=== PATIENT | male | born 1960 | race Caucasian/White ===

== ENCOUNTER 2020-11-08 07:37 | Day surgery (SDC) | payer OTHER ==
[~2020-11-08 07:37] MED LIST: Lactated Ringers 1,000 ML IV SCH; Lidocaine 2% 5 ML SDV ONE; Propofol 200 MG/20 ML SDV ONE; fentaNYL 100 MCG/2 ML SDV ONE
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
[2020-11-08] MEDS ORDERED: Glycopyrrolate 0.2 MG/ML SDV ONE ×2 (09:18→09:21)
--- NOTE | 2020-11-08 09:57 | PCM.OPNOTE ---
- General Post-Op/Procedure Note Date of Surgery/Procedure: 11/08/20 Operative Procedure(s): colonoscopy and hot snarr polypectomies Findings: Anastomosis at about 10 cm Right sided divertiulosis colon polyps at 65 cm and 20 cm dictation number [id number] Pre Op Diagnosis: History of colon cancer Post-Op Diagnosis: Anastomosis at about 10 cm. Right sided divertiulosis. colon polyps at 65 cm and 20 cm Primary Surgeon: Konstantin Richardson Pathology: colon polyps Complications: None Condition: Good
--- NOTE | 2020-11-08 10:15 | PCM.POSTAN ---
POST ANESTHESIA ASSESSMENT - MENTAL STATUS Mental Status: Alert, Oriented - VITAL SIGNS Vital Signs: Last Vital Signs Temp 36.4 C 11/08/20 07:57 Pulse 85 11/08/20 10:07 Resp 14 11/08/20 10:07 BP 111/71 11/08/20 10:07 Pulse Ox 98 11/08/20 10:07 - RESPIRATORY Respiratory Status: Respiratory Rate WNL, Airway Patent, O2 Saturation Stable - CARDIOVASCULAR CV Status: Pulse Rate WNL, Blood Pressure Stable - GASTROINTESTINAL GI Status: No Symptoms - PAIN Pain Score: 0 - POST OP HYDRATION Hydration Status: Adequate & Stable - OBSERVATIONS Free Text/Narrative:: No anesthesia problems
--- NOTE | 2020-11-08 10:46 | PCM48HPAN ---
Post Anesthesia Note - EVALUATION WITHIN 48HRS OF ANESTHETIC Vital Signs in Normal Range: Yes Patient Participated in Evaluation: Yes Respiratory Function Stable: Yes Airway Patent: Yes Cardiovascular Function Stable: Yes Hydration Status Stable: Yes Pain Control Satisfactory: Yes Nausea and Vomiting Control Satisfactory: Yes Mental Status Recovered: Yes Vital Signs: Last Vital Signs Temp 36.2 C 11/08/20 10:15 Pulse 76 11/08/20 10:15 Resp 14 11/08/20 10:15 BP 123/68 11/08/20 10:15 Pulse Ox 98 11/08/20 10:15 - COMMENTS/OBSERVATIONS Free Text/Narrative:: No anesthesia problems
--- NOTE | 2020-11-08 12:04 | OR ---
SURGEON: SHASHA MULLER MD DATE OF PROCEDURE: 11/08/2020 PREOPERATIVE DIAGNOSIS: History of colon cancer. POSTOPERATIVE DIAGNOSES: 1. Right-sided diverticulosis. 2. Colon polyps at 65 cm and 20 cm. 3. Anastomosis at 10 cm. PROCEDURES PERFORMED: 1. Colonoscopy. 2. Hot snare polypectomy. PRIMARY SURGEON: Shasha Muller MD ANESTHESIA: With anesthesiologist. EXTENT OF COLONOSCOPY: To the cecum. BOWEL PREP: Good. LIMITATIONS: None. REASON FOR PROCEDURE: The patient is a pleasant 60-year-old gentleman who 1 year ago was found to have colon cancer and underwent a lower anterior resection. This will be his first colonoscopy since the resection. Denies any blood in his stool. His mother did have colon cancer. PROCEDURE IN DETAIL: Physical exam was performed. The major risks and benefits associated with the procedure were explained to the patient in detail. The patient verbalized understanding of the same. The patient was then connected to the appropriate monitoring devices and IV started. EKG, pulse, pulse oximetry, blood pressure, and capnography were monitored throughout the procedure and his oxygen and sedation were provided by the anesthesiologist. The patient was placed in the left lateral decubitus position. Sedation began. After adequate sedation was achieved, digital rectal exam was performed. No rectal masses or polyps were felt, but the patient did have some external hemorrhoidal skin tags. Now, a well-lubricated Olympus colonoscope was entered into the rectum and advanced under direct visualization to the level of the cecum. The cecum was identified by both visual and anatomic landmarks. A photography was taken of the cecal cap. The scope was then slowly withdrawn in a somewhat circular fashion looking at the color, texture, anatomy, and integrity of the mucosa from the cecum to the anal canal. The patient did have an okay bowel prep. He still had a little bit of liquid stool on the hernandez. I did spend some time suctioning this out on the way in and out of the colon for good views of the hernandez of the colon. The patient did have a right-sided diverticulosis. The patient also had a small polyp at about 65 cm, this was removed with a hot snare polypectomy. There was good hemostasis. The patient had another slightly larger polyp at about 20 cm, also removed with a hot snare polypectomy. The patient's anastomosis was at approximately 10 cm and appeared intact. There were some tee that had eroded through the mucosa exposed through the mucosa. The scope was retroflexed in the rectum. The scope was completely removed and the procedure was terminated. ENDOSCOPIC DIAGNOSES: 1. Right-sided diverticulosis. 2. Colon polyps at 65 and 20 cm. 3. Anastomosis at about 10 cm. RECOMMENDATIONS: Followup colonoscopy will depend on pathology, but most likely another one in 1 to 2 years, sooner if he develops signs or symptoms such as change in bowel habits or blood in his stools. KARINA / FRANK /[id number]
== END 2020-11-08 10:24 | disposition home or self-care (01) ==
LOC: MW.SDS 07:37
PROVIDERS: ATTEND Surgery
DX: Z12.11 Encounter for screening for malignant neoplasm of colon (principal); D12.6 Benign neoplasm of colon, unspecified; K57.30 Diverticulosis of large intestine without perforation or abscess without bleeding; F17.200 Nicotine dependence, unspecified, uncomplicated; J44.9 Chronic obstructive pulmonary disease, unspecified; Z98.0 Intestinal bypass and anastomosis status; Z90.49 Acquired absence of other specified parts of digestive tract; Z85.038 Personal history of other malignant neoplasm of large intestine; Z80.0 Family history of malignant neoplasm of digestive organs; Z79.899 Other long term (current) drug therapy
CPT/HCPCS: 45385; J2001; J2704; J3010; J3490; J7120

== ENCOUNTER 2020-11-27 09:30 | Inpatient (IN) | payer OTHER ==
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
[2020-11-27 10:51] LABS: POTASSIUM,K 5.1 mmol/L (3.5-5.1)
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
[2020-11-27 11:23] LABS: HEMOGLOBIN A1C 5.6 %
[2020-11-27] MEDS ORDERED: Piperacillin/Tazobactam 3.375 GM in Sodium Chloride 0.9% 50 ML IV ONE (11:34)
[2020-11-27] MEDS ORDERED: Sodium Chloride 0.9% 1,000 ML IV ONE (11:42)
[2020-11-27] MEDS ORDERED: Propofol 200 MG/20 ML SDV ONE (11:45)
[2020-11-27] MEDS ORDERED: Ondansetron 4 MG/2 ML SDV ONE (11:45)
[2020-11-27] MEDS ORDERED: Succinylcholine/Sod PF 100 MG/5 ML SYRINGE IV ONE (11:45)
[2020-11-27] MEDS ORDERED: ePHEDrine 50 MG/ML SDV ONE (11:45)
[2020-11-27] MEDS ORDERED: fentaNYL 250 MCG/5 ML SDV ONE (11:46)
[2020-11-27] MEDS ORDERED: Bupivacaine 0.5% 30 ML SDV ONE (11:51)
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
[2020-11-27] MEDS ORDERED: Octyl 2-Cyanoacrylate 1 Tube ONE (11:52)
[2020-11-27] MEDS ORDERED: Midazolam 1 MG/ML 2 ML SDV ONE (11:55)
[2020-11-27] MEDS ORDERED: Dexamethasone 4 MG/ML 5 ML MDV ONE (11:57)
[2020-11-27] MEDS ORDERED: ceFAZolin 1 GM Vial ONE (12:12)
[2020-11-27 13:07] LABS: CARBON DIOXIDE,CO2 26.6 mmol/L (21.0-32.0); POTASSIUM,K 4.6 mmol/L (3.5-5.1)
[2020-11-27] MEDS ORDERED: HYDROmorphone 2 MG/ML Syringe ONE (13:54)
[2020-11-27] MEDS ORDERED: Sugammadex Sodium 200 MG/2 ML VIAL ONE (14:24)
[2020-11-27] MEDS ORDERED: EPINEPHrine 1:10,000 1 MG/10 ML Syringe IVPUSH PRN (14:35)
[2020-11-27] MEDS ORDERED: 50% Dextrose in Water 50 ML Syringe IVPUSH PRN (14:35)
[2020-11-27] MEDS ORDERED: Albuterol 0.083% 2.5 MG/3 ML Neb Soln NEB PRN (14:35)
[2020-11-27] MEDS ORDERED: Atropine 0.1 MG/ML 10 ML Syringe IVPUSH PRN ×2 (14:35)
[2020-11-27] MEDS ORDERED: Naloxone 0.4 MG/ML Syringe IVPUSH PRN (14:35)
[2020-11-27] MEDS ORDERED: diphenhydrAMINE 50 MG/ML SDV IVPUSH PRN (14:42)
[2020-11-27] MEDS ORDERED: Sodium Chloride 0.9% 10 ML Syringe FLUSH PRN (14:42)
[2020-11-27] MEDS ORDERED: Sodium Chloride 0.9% 2.5 ML Syringe FLUSH PRN (14:42)
[2020-11-27] MEDS ORDERED: Sodium Chloride 0.9% 10 ML SDV IV PRN (14:42)
--- NOTE | 2020-11-27 15:38 | PCM.POSTAN ---
POST ANESTHESIA ASSESSMENT - MENTAL STATUS Mental Status: Alert, Oriented - VITAL SIGNS Vital Signs: Last Vital Signs Temp 36.2 C 11/27/20 14:39 Pulse 85 11/27/20 15:28 Resp 17 11/27/20 15:28 BP 131/76 11/27/20 15:28 Pulse Ox 97 11/27/20 15:28 - RESPIRATORY Respiratory Status: Respiratory Rate WNL, Airway Patent, O2 Saturation Stable - CARDIOVASCULAR CV Status: Pulse Rate WNL, Blood Pressure Stable - GASTROINTESTINAL GI Status: No Symptoms Free Text/Narrative:: ng tube secured. - POST OP HYDRATION Hydration Status: Adequate & Stable - OBSERVATIONS Free Text/Narrative:: 22 gauge iv started in right hand. The patient has no other complaints at this time. There were no apparent anesthetic complications at this time. Discharge per criteria.
--- NOTE | 2020-11-27 15:39 | OR ---
SURGEON: CECI LOMBARDO MD DATE OF PROCEDURE: 11/27/2020 PREOPERATIVE DIAGNOSIS: High-grade small-bowel obstruction. POSTOPERATIVE DIAGNOSES: High-grade small-bowel obstruction, intra-abdominal adhesions. PROCEDURE PERFORMED: Exploratory laparotomy with lysis of adhesions. PRIMARY SURGEON: Ceci Lombardo MD. SECOND SURGEON: Konstantin Richardson MD ANESTHESIA: General endotracheal anesthesia. FLUIDS: 1700 mL crystalloid. ESTIMATED BLOOD LOSS: 10 mL. URINE OUTPUT: 250 mL. NG OUTPUT: 1000 mL. FINDINGS: Adhesive bands in the mid and distal jejunum causing high-grade small-bowel obstruction. Distal adhesion was to the previous sigmoid-rectum anastomosis. COMPLICATIONS: None. INDICATIONS: The patient is a 60-year-old male with a past medical history significant for previous abdominal surgeries, including a laparoscopic sigmoidectomy for colon cancer one year ago. He presented to an outside hospital with a 1-day history of nausea, vomiting, abdominal distention, and pain. Workup revealed dehydration, acute kidney injury, and CT scan showed a high-grade small-bowel obstruction. There appeared to be a transition point along the previous sigmoid anastomotic site, felt to be caused by an adhesive band on the small bowel. The patient presented to our hospital. We continued fluid resuscitation and rechecked his labs. His white count and his lactate was elevated. His abdomen was tender and distended. Given his findings, the decision was made to proceed with an exploratory laparotomy with possible lysis of adhesions and possible small bowel resection and reanastomosis. The patient and I went through in detail what the procedure may entail including the postoperative course. I explained the risks including bleeding, infection, damage to surrounding structures or wound complications. He verbalized understanding and wishes to proceed. PROCEDURE IN DETAIL: The patient was brought into the OR and placed on the OR table in supine position. A time-out was completed verifying the patient's name, age, date of , allergies, and procedure to be performed. General endotracheal anesthesia was induced. Upon induction, the patient became hypotensive. He responded to fluids and pressors. Once the patient was stabilized, we prepped and draped the abdomen in usual standard fashion. A lower midline incision was made using a 10 blade. This was carried above the umbilicus. Cautery was used to dissect down to the level of the subcutaneous fat. The fascia was then incised using a Metzenbaum scissors. I sharply opened up the fascia. Using a hemostat, I dissected down to the peritoneum. The peritoneum was elevated with hemostats and incised sharply with the Metzenbaum scissors. Entry into the abdomen was palpated digitally. I then extended my incision distally and proximally using electrocautery. Retractors were put in place. The small bowel was eviscerated. The patient was found to have a tight adhesive band on the left mid aspect of the abdomen. This was located posteriorly. Moistened towels were placed in the abdomen to allow proper visualization. Using Metzenbaum scissors, this adhesion was taken down sharply. Once the adhesive band was removed, we closely inspected the small intestine. It appeared to be intact and well perfused. We then continued to explore the abdomen and palpated another tight adhesive band in the pelvis along the previous anastomotic line close to the rectum. Using gentle blunt dissection as well as sharp dissection with the Metzenbaum scissors, this adhesive band was taken down. I closely inspected the small bowel and the anastomotic site. No damage to the 2 structures was noted. We identified the cecum and ran the small bowel from the terminal ileum up to the ligament of Treitz. No other adhesions were noted other than some omental adhesions along his previous upper midline ex-lap incision. The small bowel was then gently decompressed back up into the stomach and allowed to decompress distally as well. Care was taken to not manipulate the bowel too aggressively. The pelvis and abdomen were then irrigated with normal saline, which was suctioned out. The fascia was closed with a running 1-0 PDS looped suture. The subcutaneous fat and fascia were anesthetized with 0.5% Marcaine plain. The skin was then closed with tee. A LAITH dressing was then placed on top of this. By the end of the case, the patient was weaned off pressors. He had 250 mL of urine output during the case and 1 L of output from a newly placed NG. Before closing the abdomen, I palpated the NG and could feel that was in the stomach itself. The patient was taken to PACU in stable condition. All counts were complete and correct at the end of the case. KENDY / FRANK /[id number] SHINE
[2020-11-27 15:52] LABS: CARBON DIOXIDE,CO2 28.4 mmol/L (21.0-32.0); POTASSIUM,K 5.5 mmol/L (3.5-5.1)
[2020-11-27] MEDS ORDERED: Albuterol/Ipratropium 3.0-0.5 MG/3 ML Neb Soln NEB PRN (16:07)
[2020-11-27] MEDS: fentaNYL 100 MCG/2 ML SDV IVPUSH PRN ×2 (16:11→16:22)
[2020-11-27] MEDS: Sodium Chloride 0.9% 1,000 ML IV SCH (17:40)
[2020-11-27] MEDS: Pantoprazole 40 MG in Sodium Chloride 0.9% 10 ML IV SCH (17:43)
[2020-11-27 19:38] LABS: CARBON DIOXIDE,CO2 27.7 mmol/L (21.0-32.0); POTASSIUM,K 4.5 mmol/L (3.5-5.1)
[2020-11-27] MEDS: HYDROmorphone 2 MG/ML Syringe IVPUSH PRN ×2 (20:36→21:54)
[2020-11-27] MEDS: Phenol 1.4% Oral Spray 177 ML Bottle MUCMEM PRN (22:33)
[2020-11-28] MEDS: HYDROmorphone 2 MG/ML Syringe IVPUSH PRN ×7 (00:31→11:29)
[2020-11-28] MEDS: Sodium Chloride 0.9% 1,000 ML IV SCH ×2 (01:37→08:34)
[2020-11-28] MEDS: Phenol 1.4% Oral Spray 177 ML Bottle MUCMEM PRN ×2 (04:24→06:34)
[2020-11-28 06:12] LABS: CARBON DIOXIDE,CO2 28.1 mmol/L (21.0-32.0); POTASSIUM,K 3.9 mmol/L (3.5-5.1)
--- NOTE | 2020-11-28 07:01 | PCM48HPAN ---
Post Anesthesia Note - EVALUATION WITHIN 48HRS OF ANESTHETIC Vital Signs in Normal Range: Yes Patient Participated in Evaluation: Yes Respiratory Function Stable: Yes Airway Patent: Yes Cardiovascular Function Stable: Yes Hydration Status Stable: Yes Pain Control Satisfactory: Yes Nausea and Vomiting Control Satisfactory: Yes Mental Status Recovered: Yes Vital Signs: Last Vital Signs Temp 36.6 C 11/28/20 04:00 Pulse 91 11/27/20 16:43 Resp 15 11/28/20 06:00 BP 114/65 11/28/20 06:00 Pulse Ox 94 L 11/28/20 06:00 - COMMENTS/OBSERVATIONS Free Text/Narrative:: The patient states that he wants the NG tube out. He appears comfortable, and in no acute distress. I explained to Venu, that Dr. Lombardo needs to evaluate him, and then she will make that determination. There were no apparent anesthetic complications at this time. Discharge from Anesthesia service per criteria.
[2020-11-28] MEDS: Pantoprazole 40 MG in Sodium Chloride 0.9% 10 ML IV SCH (08:17)
--- NOTE | 2020-11-28 10:23 | PCM.SURGPN ---
- General Info Date of Service: 11/28/20 Date of Surgery/Procedure: 11/27/20 POD#: 1 - Review of Systems General: Reports: Fatigue HEENT: Reports: Sore Throat Pulmonary: Reports: No Symptoms Cardiovascular: Reports: No Symptoms Gastrointestinal: Reports: Abdominal Pain (Muscle spasms along incision). Denies: Flatus, Nausea, Vomiting Genitourinary: Reports: No Symptoms Musculoskeletal: Reports: No Symptoms Skin: Reports: No Symptoms Neurological: Reports: No Symptoms Psychiatric: Reports: Agitation - Patient Data Vitals - Most Recent: Last Vital Signs Temp 36.6 C 11/28/20 04:00 Pulse 91 11/27/20 16:43 Resp 12 11/28/20 07:00 BP 103/63 11/28/20 07:00 Pulse Ox 93 L 11/28/20 07:00 Weight - Most Recent: 76.975 kg I&O - Last 24 Hours: Intake & Output 11/27/20 11/28/20 11/28/20 22:59 06:59 14:59 Intake Total 2009 1623 Output Total 500 650 Balance 1510 974 Lab Results Last 24 Hrs: Laboratory Results - last 24 hr 11/27/20 11/27/20 11/27/20 Range/Units 10:13 10:13 10:13 WBC 17.87 H (4.0-11.0) K/uL RBC 5.74 (4.50-5.90) M/uL Hgb 19.5 H (13.0-17.0) g/dL Hct 55.8 H (38.0-50.0) % MCV 97.2 (80.0-98.0) fL MCH 34.0 H (27.0-32.0) pg MCHC 34.9 (31.0-37.0) g/dL RDW Std Deviation 48.0 (28.0-62.0) fl RDW Coeff of Yin 14 (11.0-15.0) % Plt Count 267 (150-400) K/uL MPV 9.00 (7.40-12.00) fL Neut % (Auto) 88.0 H (48.0-80.0) % Lymph % (Auto) 2.9 L (16.0-40.0) % [place] % (Auto) 9.0 (0.0-15.0) % Eos % (Auto) 0.0 (0.0-7.0) % Baso % (Auto) 0.1 (0.0-1.5) % Neut # (Auto) 15.8 H (1.4-5.7) K/uL Lymph # (Auto) 0.5 L (0.6-2.4) K/uL [place] # (Auto) 1.6 H (0.0-0.8) K/uL Eos # (Auto) 0.0 (0.0-0.7) K/uL Baso # (Auto) 0.0 (0.0-0.1) K/uL Nucleated RBC % 0.0 /100WBC Nucleated RBCs # 0 K/uL Lactate 2.4 H* (0.20-2.00) mmol/L Sodium 132 L (136-148) mmol/L Potassium 5.1 (3.5-5.1) mmol/L Chloride 93 L (98-107) mmol/L Carbon Dioxide 24.0 (21.0-32.0) mmol/L BUN 17 (7.0-18.0) mg/dL Creatinine 1.5 H (0.8-1.3) mg/dL Est Cr Clr Drug Dosing 56.13 mL/min Estimated GFR (MDRD) 47.9 ml/min Glucose 196 H (74-106) mg/dL Hemoglobin A1c (4.5 - 6.2) % Calcium 10.1 (8.5-10.1) mg/dL Phosphorus (2.6-4.7) mg/dL Magnesium (1.8-2.4) mg/dL Total Bilirubin (0.2-1.0) mg/dL AST (15-37) IU/L ALT (14-63) IU/L Alkaline Phosphatase (46-116) U/L Total Protein (6.4-8.2) g/dL Albumin (3.4-5.0) g/dL Globulin (2.6-4.0) g/dL Albumin/Globulin Ratio (0.9-1.6) SARS-CoV-2 RNA (CINDY) (NEGATIVE) 11/27/20 11/27/20 11/27/20 Range/Units 10:13 10:13 10:26 WBC (4.0-11.0) K/uL RBC (4.50-5.90) M/uL Hgb (13.0-17.0) g/dL Hct (38.0-50.0) % MCV (80.0-98.0) fL MCH (27.0-32.0) pg MCHC (31.0-37.0) g/dL RDW Std Deviation (28.0-62.0) fl RDW Coeff of Yin (11.0-15.0) % Plt Count (150-400) K/uL MPV (7.40-12.00) fL Neut % (Auto) (48.0-80.0) % Lymph % (Auto) (16.0-40.0) % [place] % (Auto) (0.0-15.0) % Eos % (Auto) (0.0-7.0) % Baso % (Auto) (0.0-1.5) % Neut # (Auto) (1.4-5.7) K/uL Lymph # (Auto) (0.6-2.4) K/uL [place] # (Auto) (0.0-0.8) K/uL Eos # (Auto) (0.0-0.7) K/uL Baso # (Auto) (0.0-0.1) K/uL Nucleated RBC % /100WBC Nucleated RBCs # K/uL Lactate (0.20-2.00) mmol/L Sodium (136-148) mmol/L Potassium (3.5-5.1) mmol/L Chloride (98-107) mmol/L Carbon Dioxide (21.0-32.0) mmol/L BUN (7.0-18.0) mg/dL Creatinine (0.8-1.3) mg/dL Est Cr Clr Drug Dosing mL/min Estimated GFR (MDRD) ml/min Glucose (74-106) mg/dL Hemoglobin A1c 5.6 (4.5 - 6.2) % Calcium (8.5-10.1) mg/dL Phosphorus (2.6-4.7) mg/dL Magnesium 1.9 (1.8-2.4) mg/dL Total Bilirubin (0.2-1.0) mg/dL AST (15-37) IU/L ALT (14-63) IU/L Alkaline Phosphatase (46-116) U/L Total Protein (6.4-8.2) g/dL Albumin (3.4-5.0) g/dL Globulin (2.6-4.0) g/dL Albumin/Globulin Ratio (0.9-1.6) SARS-CoV-2 RNA (CINDY) NEGATIVE (NEGATIVE) 11/27/20 11/27/20 11/27/20 Range/Units 12:30 12:30 12:30 WBC 15.38 H (4.0-11.0) K/uL RBC 5.15 (4.50-5.90) M/uL Hgb 17.5 H (13.0-17.0) g/dL Hct 51.1 H (38.0-50.0) % MCV 99.2 H (80.0-98.0) fL MCH 34.0 H (27.0-32.0) pg MCHC 34.2 (31.0-37.0) g/dL RDW Std Deviation 49.7 (28.0-62.0) fl RDW Coeff of Yin 14 (11.0-15.0) % Plt Count 251 (150-400) K/uL MPV 8.90 (7.40-12.00) fL Neut % (Auto) (48.0-80.0) % Lymph % (Auto) (16.0-40.0) % [place] % (Auto) (0.0-15.0) % Eos % (Auto) (0.0-7.0) % Baso % (Auto) (0.0-1.5) % Neut # (Auto) (1.4-5.7) K/uL Lymph # (Auto) (0.6-2.4) K/uL [place] # (Auto) (0.0-0.8) K/uL Eos # (Auto) (0.0-0.7) K/uL Baso # (Auto) (0.0-0.1) K/uL Nucleated RBC % 0.0 /100WBC Nucleated RBCs # 0 K/uL Lactate 2.4 H* (0.20-2.00) mmol/L Sodium 136 (136-148) mmol/L Potassium 4.6 (3.5-5.1) mmol/L Chloride 97 L (98-107) mmol/L Carbon Dioxide 26.6 (21.0-32.0) mmol/L BUN 21 H (7.0-18.0) mg/dL Creatinine 1.7 H (0.8-1.3) mg/dL Est Cr Clr Drug Dosing 49.53 mL/min Estimated GFR (MDRD) 41.5 ml/min Glucose 179 H (74-106) mg/dL Hemoglobin A1c (4.5 - 6.2) % Calcium 9.2 (8.5-10.1) mg/dL Phosphorus (2.6-4.7) mg/dL Magnesium (1.8-2.4) mg/dL Total Bilirubin (0.2-1.0) mg/dL AST (15-37) IU/L ALT (14-63) IU/L Alkaline Phosphatase (46-116) U/L Total Protein (6.4-8.2) g/dL Albumin (3.4-5.0) g/dL Globulin (2.6-4.0) g/dL Albumin/Globulin Ratio (0.9-1.6) SARS-CoV-2 RNA (CINDY) (NEGATIVE) 11/27/20 11/27/20 11/27/20 Range/Units 15:14 15:14 15:14 WBC 14.32 H (4.0-11.0) K/uL RBC 5.00 (4.50-5.90) M/uL Hgb 16.8 (13.0-17.0) g/dL Hct 50.6 H (38.0-50.0) % MCV 101.2 H (80.0-98.0) fL MCH 33.6 H (27.0-32.0) pg MCHC 33.2 (31.0-37.0) g/dL RDW Std Deviation 50.8 (28.0-62.0) fl RDW Coeff of Yin 14 (11.0-15.0) % Plt Count 228 (150-400) K/uL MPV 9.10 (7.40-12.00) fL Neut % (Auto) (48.0-80.0) % Lymph % (Auto) (16.0-40.0) % [place] % (Auto) (0.0-15.0) % Eos % (Auto) (0.0-7.0) % Baso % (Auto) (0.0-1.5) % Neut # (Auto) (1.4-5.7) K/uL Lymph # (Auto) (0.6-2.4) K/uL [place] # (Auto) (0.0-0.8) K/uL Eos # (Auto) (0.0-0.7) K/uL Baso # (Auto) (0.0-0.1) K/uL Nucleated RBC % 0.0 /100WBC Nucleated RBCs # 0 K/uL Lactate 2.4 H* (0.20-2.00) mmol/L Sodium 137 (136-148) mmol/L Potassium 5.5 H (3.5-5.1) mmol/L Chloride 101 (98-107) mmol/L Carbon Dioxide 28.4 (21.0-32.0) mmol/L BUN 20 H (7.0-18.0) mg/dL Creatinine 1.5 H (0.8-1.3) mg/dL Est Cr Clr Drug Dosing 56.13 mL/min Estimated GFR (MDRD) 47.9 ml/min Glucose 141 H (74-106) mg/dL Hemoglobin A1c (4.5 - 6.2) % Calcium 8.5 (8.5-10.1) mg/dL Phosphorus (2.6-4.7) mg/dL Magnesium (1.8-2.4) mg/dL Total Bilirubin (0.2-1.0) mg/dL AST (15-37) IU/L ALT (14-63) IU/L Alkaline Phosphatase (46-116) U/L Total Protein (6.4-8.2) g/dL Albumin (3.4-5.0) g/dL Globulin (2.6-4.0) g/dL Albumin/Globulin Ratio (0.9-1.6) SARS-CoV-2 RNA (CINDY) (NEGATIVE) 11/27/20 11/27/20 11/28/20 Range/Units 19:15 19:15 05:23 WBC 11.24 H (4.0-11.0) K/uL RBC 4.22 L (4.50-5.90) M/uL Hgb 14.0 (13.0-17.0) g/dL Hct 42.7 (38.0-50.0) % MCV 101.2 H (80.0-98.0) fL MCH 33.2 H (27.0-32.0) pg MCHC 32.8 (31.0-37.0) g/dL RDW Std Deviation 51.2 (28.0-62.0) fl RDW Coeff of Yin 14 (11.0-15.0) % Plt Count 215 (150-400) K/uL MPV 9.00 (7.40-12.00) fL Neut % (Auto) 77.4 (48.0-80.0) % Lymph % (Auto) 11.9 L (16.0-40.0) % [place] % (Auto) 10.2 (0.0-15.0) % Eos % (Auto) 0.4 (0.0-7.0) % Baso % (Auto) 0.1 (0.0-1.5) % Neut # (Auto) 8.7 H (1.4-5.7) K/uL Lymph # (Auto) 1.3 (0.6-2.4) K/uL [place] # (Auto) 1.2 H (0.0-0.8) K/uL Eos # (Auto) 0.1 (0.0-0.7) K/uL Baso # (Auto) 0.0 (0.0-0.1) K/uL Nucleated RBC % 0.0 /100WBC Nucleated RBCs # 0 K/uL Lactate 1.2 (0.20-2.00) mmol/L Sodium 139 (136-148) mmol/L Potassium 4.5 (3.5-5.1) mmol/L Chloride 102 (98-107) mmol/L Carbon Dioxide 27.7 (21.0-32.0) mmol/L BUN 19 H (7.0-18.0) mg/dL Creatinine 1.3 (0.8-1.3) mg/dL Est Cr Clr Drug Dosing 64.77 mL/min Estimated GFR (MDRD) 56.5 ml/min Glucose 128 H (74-106) mg/dL Hemoglobin A1c (4.5 - 6.2) % Calcium 7.8 L (8.5-10.1) mg/dL Phosphorus (2.6-4.7) mg/dL Magnesium (1.8-2.4) mg/dL Total Bilirubin (0.2-1.0) mg/dL AST (15-37) IU/L ALT (14-63) IU/L Alkaline Phosphatase (46-116) U/L Total Protein (6.4-8.2) g/dL Albumin (3.4-5.0) g/dL Globulin (2.6-4.0) g/dL Albumin/Globulin Ratio (0.9-1.6) SARS-CoV-2 RNA (CINDY) (NEGATIVE) 11/28/20 Range/Units 05:23 WBC (4.0-11.0) K/uL RBC (4.50-5.90) M/uL Hgb (13.0-17.0) g/dL Hct (38.0-50.0) % MCV (80.0-98.0) fL MCH (27.0-32.0) pg MCHC (31.0-37.0) g/dL RDW Std Deviation (28.0-62.0) fl RDW Coeff of Yin (11.0-15.0) % Plt Count (150-400) K/uL MPV (7.40-12.00) fL Neut % (Auto) (48.0-80.0) % Lymph % (Auto) (16.0-40.0) % [place] % (Auto) (0.0-15.0) % Eos % (Auto) (0.0-7.0) % Baso % (Auto) (0.0-1.5) % Neut # (Auto) (1.4-5.7) K/uL Lymph # (Auto) (0.6-2.4) K/uL [place] # (Auto) (0.0-0.8) K/uL Eos # (Auto) (0.0-0.7) K/uL Baso # (Auto) (0.0-0.1) K/uL Nucleated RBC % /100WBC Nucleated RBCs # K/uL Lactate (0.20-2.00) mmol/L Sodium 141 (136-148) mmol/L Potassium 3.9 (3.5-5.1) mmol/L Chloride 105 (98-107) mmol/L Carbon Dioxide 28.1 (21.0-32.0) mmol/L BUN 18 (7.0-18.0) mg/dL Creatinine 1.3 (0.8-1.3) mg/dL Est Cr Clr Drug Dosing 66.61 mL/min Estimated GFR (MDRD) 56.5 ml/min Glucose 108 H (74-106) mg/dL Hemoglobin A1c (4.5 - 6.2) % Calcium 8.1 L (8.5-10.1) mg/dL Phosphorus 3.6 (2.6-4.7) mg/dL Magnesium 1.9 (1.8-2.4) mg/dL Total Bilirubin 1.4 H (0.2-1.0) mg/dL AST 22 (15-37) IU/L ALT 24 (14-63) IU/L Alkaline Phosphatase 65 (46-116) U/L Total Protein 6.1 L (6.4-8.2) g/dL Albumin 2.9 L (3.4-5.0) g/dL Globulin 3.2 (2.6-4.0) g/dL Albumin/Globulin Ratio 0.9 (0.9-1.6) SARS-CoV-2 RNA (CINDY) (NEGATIVE) Med Orders - Current: Current Medications Albuterol/Ipratropium (Duoneb 3.0-0.5 Mg/3 Ml) 3 ml NEB Q4HRRT PRN PRN Reason: Wheezing Diphenhydramine HCl (Benadryl) 50 mg IVPUSH Q4H PRN PRN Reason: Itching Hydromorphone HCl (Dilaudid) 0.5 mg IVPUSH Q1H PRN PRN Reason: Pain (severe 7-10) Last Admin: 11/28/20 08:14 Dose: 0.5 mg Documented by: Sodium Chloride (Normal Saline) 1,000 mls @ 125 mls/hr IV ASDIRECTED [facility] Last Admin: 11/28/20 08:34 Dose: 125 mls/hr Documented by: Pantoprazole Sodium 40 mg/ (Sodium Chloride) 10 mls @ 300 mls/hr IV DAILY JESSICA Last Admin: 11/28/20 08:17 Dose: 300 mls/hr Documented by: Phenol/Menthol (Chloraseptic Throat [place]) 1 ml MUCMEM Q2H PRN PRN Reason: Sore Throat Last Admin: 11/28/20 06:34 Dose: 1 spray Documented by: Sodium Chloride (Saline Flush) 10 ml FLUSH ASDIRECTED PRN PRN Reason: Keep Vein Open Sodium Chloride (Saline Flush) 2.5 ml FLUSH ASDIRECTED PRN PRN Reason: Keep Vein Open Sodium Chloride (Normal Saline) 10 ml IV ASDIRECTED PRN PRN Reason: IV Use Discontinued Medications Albuterol (Proventil Neb Soln) 2.5 mg NEB ONETIME PRN PRN Reason: Wheezing Atropine Sulfate (Atropine 0.1 Mg/Ml) 0.5 mg IVPUSH ASDIRECTED PRN PRN Reason: Hypo-perfusion Atropine Sulfate (Atropine 0.1 Mg/Ml) 1 mg IVPUSH ASDIRECTED PRN PRN Reason: Hypo-Perfusion Bupivacaine HCl (Marcaine 0.5%) Confirm Administered Dose 120 ml .ROUTE .STK-MED ONE Stop: 11/27/20 11:52 Cefazolin Sodium (Ancef) Confirm Administered Dose 1 gm .ROUTE .STK-MED ONE Stop: 11/27/20 12:13 Dexamethasone (Dexamethasone) Confirm Administered Dose 20 mg .ROUTE .STK-MED ONE Stop: 11/27/20 11:58 Dextrose/Water (Dextrose 50% In Water) 50 ml IVPUSH ASDIRECTED PRN PRN Reason: Hypoglycemia Ephedrine Sulfate (Ephedrine Sulfate) Confirm Administered Dose 50 mg .ROUTE .STK-MED ONE Stop: 11/27/20 11:46 Epinephrine HCl (Epinephrine 1:10,000) 1 mg IVPUSH ASDIRECTED PRN PRN Reason: ACLS Guidelines Fentanyl (Sublimaze) Confirm Administered Dose 250 mcg .ROUTE .STK-MED ONE Stop: 11/27/20 11:47 Fentanyl (Sublimaze) 50 - 100 mcg IVPUSH Q5M PRN PRN Reason: Pain Last Admin: 11/27/20 16:22 Dose: 50 mcg Documented by: Hydromorphone HCl (Dilaudid) Confirm Administered Dose 2 mg .ROUTE .STK-MED ONE Stop: 11/27/20 13:55 Piperacillin Sod/Tazobactam (Sod 3.375 gm/ Sodium Chloride) 50 mls @ 100 mls/hr IV ONETIME ONE Stop: 11/27/20 12:03 Last Admin: 11/27/20 11:48 Dose: 100 mls/hr Documented by: Sodium Chloride (Normal Saline) 1,000 mls @ 999 mls/hr IV .Bolus ONE Stop: 11/27/20 12:42 Last Admin: 11/27/20 11:47 Dose: 999 mls/hr Documented by: Acetaminophen (Ofirmev) Confirm Administered Dose 100 mls @ as directed .ROUTE .STK-MED ONE Stop: 11/27/20 13:12 Midazolam HCl (Versed 1 Mg/Ml) Confirm Administered Dose 2 mg .ROUTE .STK-MED ONE Stop: 11/27/20 11:56 Naloxone HCl (Narcan) 0.1 mg IVPUSH ASDIRECTED PRN PRN Reason: Respiratory Depression Octyl Cyanoacrylate (Dermabond Advance) Confirm Administered Dose 1 applic .ROUTE .STK-MED ONE Stop: 11/27/20 11:53 Ondansetron HCl (Zofran) Confirm Administered Dose 4 mg .ROUTE .STK-MED ONE Stop: 11/27/20 11:46 Propofol (Diprivan 20 Ml) Confirm Administered Dose 200 mg .ROUTE .STK-MED ONE Stop: 11/27/20 11:46 Sugammadex Sodium (Bridion) Confirm Administered Dose 200 mg .ROUTE .STK-MED ONE Stop: 11/27/20 14:25 - Exam Wound/Incisions: Healing Well, Dressing Dry and Intact General: Alert, Oriented, Mild Distress HEENT: Pupils Equal Lungs: Clear to Auscultation, Normal Respiratory Effort Cardiovascular: Regular Rate, Regular Rhythm GI/Abdominal Exam: Soft, Distended, Tender (Along incision). No: Normal Bowel Sounds Skin: Warm, Dry, Intact Psy/Mental Status: Alert, Normal Affect, Normal Mood Sepsis Event Note - Evaluation Sepsis Screening Result: No Definite Risk - Focused Exam Vital Signs: Vital Signs Temp Resp BP Pulse Ox 11/28/20 07:00 12 103/63 93 L 11/28/20 06:00 15 114/65 94 L 11/28/20 05:00 14 106/58 L 92 L 11/28/20 04:00 36.6 C 16 106/56 L 92 L 11/28/20 03:00 17 93/56 L 93 L 11/28/20 02:00 17 97/55 L 95 11/28/20 01:00 18 108/59 L 95 11/28/20 00:00 36.8 C 16 107/67 92 L 11/27/20 23:00 19 105/61 91 L - Problem List & Annotations (1) SBO (small bowel obstruction) SNOMED Code(s): 184399593 Code(s): K56.609 - UNSP INTESTNL OBST, UNSP TO PARTIAL VERSUS COMPLETE OBST Status: Acute Current Visit: Yes (2) DARYL (acute kidney injury) SNOMED Code(s): 55900256, 72389649 Code(s): N17.9 - ACUTE KIDNEY FAILURE, UNSPECIFIED Status: Acute Current Visit: Yes (3) Dehydration SNOMED Code(s): 63155654 Code(s): E86.0 - DEHYDRATION Status: Acute Current Visit: Yes - Problem List Review Problem List Initiated/Reviewed/Updated: Yes - My Orders Last 24 Hours: Active Orders 24 hr Category Date Time Status Patient Status [ADT] Routine ADT 11/27/20 14:47 Active Blood Glucose Check, Bedside [RC] PRN Care 11/27/20 14:35 Active Cardiac Monitoring [RC] Q8H Care 11/27/20 14:42 Active Gastrointestinal Tube Mgmt [RC] Q12H Care 11/27/20 14:48 Active Oxygen Therapy [RC] PRN Care 11/27/20 14:35 Active Oxygen Therapy [RC] PRN Care 11/27/20 14:47 Active Pulse Oximetry [RC] CONTINUOUS Care 11/27/20 14:48 Active RT Aerosol Therapy [RC] ASDIRECTED Care 11/27/20 16:08 Active RT Incentive Spirometry [RC] Q1HWA Care 11/27/20 14:42 Active Remove Giles Catheter [Urinary Catheter Removal] [RC] Care 11/28/20 07:41 Active PER UNIT ROUTINE Up ad Pam [RC] ASDIRECTED Care 11/27/20 14:42 Active Vital Signs [RC] PER UNIT ROUTINE Care 11/27/20 14:47 Active Nothing Per Oral Diet [DIET] Diet 11/27/20 Lunch Active Albuterol/Ipratropium [DuoNeb 3.0-0.5 MG/3 ML] Med 11/27/20 16:07 Active 3 ml NEB Q4HRRT PRN HYDROmorphone [Dilaudid] Med 11/27/20 14:42 Active 0.5 mg IVPUSH Q1H PRN Pantoprazole [ProTONIX IV] 40 mg Med 11/27/20 15:30 Active Sodium Chloride 0.9% [Normal Saline] 10 ml IV DAILY Phenol [Chloraseptic Throat [place]] Med 11/27/20 22:19 Active 1 ml MUCMEM Q2H PRN Sodium Chloride 0.9% [Normal Saline] Med 11/27/20 14:42 Active 10 ml IV ASDIRECTED PRN Sodium Chloride 0.9% [Normal Saline] 1,000 ml Med 11/27/20 14:45 Active IV ASDIRECTED Sodium Chloride 0.9% [Saline Flush] Med 11/27/20 14:42 Active 10 ml FLUSH ASDIRECTED PRN Sodium Chloride 0.9% [Saline Flush] Med 11/27/20 14:42 Active 2.5 ml FLUSH ASDIRECTED PRN diphenhydrAMINE [Benadryl] Med 11/27/20 14:42 Active 50 mg IVPUSH Q4H PRN Abdominal Binder [OM.PC] Per Unit Routine Oth 11/27/20 14:48 Ordered Peripheral IV Insertion Adult [OM.PC] Urgent Oth 11/27/20 14:42 Ordered Resuscitation Status Routine Resus Stat 11/27/20 14:42 Ordered Medication Orders Albuterol/Ipratropium (Duoneb 3.0-0.5 Mg/3 Ml) 3 ml NEB Q4HRRT PRN PRN Reason: Wheezing Diphenhydramine HCl (Benadryl) 50 mg IVPUSH Q4H PRN PRN Reason: Itching Hydromorphone HCl (Dilaudid) 0.5 mg IVPUSH Q1H PRN PRN Reason: Pain (severe 7-10) Last Admin: 11/28/20 08:14 Dose: 0.5 mg Documented by: Admin: 11/28/20 06:34 Dose: 0.5 mg Documented by: Admin: 11/28/20 04:23 Dose: 0.5 mg Documented by: Admin: 11/28/20 02:54 Dose: 0.5 mg Documented by: Admin: 11/28/20 01:42 Dose: 0.5 mg Documented by: Admin: 11/28/20 00:31 Dose: 0.5 mg Documented by: Admin: 11/27/20 21:54 Dose: 0.5 mg Documented by: Admin: 11/27/20 20:36 Dose: 0.5 mg Documented by: TOBI Sodium Chloride (Normal Saline) 1,000 mls @ 125 mls/hr IV ASDIRECTED [facility] Last Admin: 11/28/20 08:34 Dose: 125 mls/hr Documented by: Infusion: 11/28/20 08:34 Dose: 125 mls/hr Documented by: Admin: 11/28/20 01:37 Dose: 125 mls/hr Documented by: Infusion: 11/28/20 01:37 Dose: 125 mls/hr Documented by: Admin: 11/27/20 17:40 Dose: 125 mls/hr Documented by: KHUSHBOO Pantoprazole Sodium 40 mg/ (Sodium Chloride) 10 mls @ 300 mls/hr IV DAILY [facility] Admin: 11/28/20 08:17 Dose: 300 mls/hr Documented by: Infusion: 11/27/20 17:45 Dose: 300 mls/hr Documented by: Admin: 11/27/20 17:43 Dose: 300 mls/hr Documented by: KHUSHBOO Phenol/Menthol (Chloraseptic Throat [place]) 1 ml MUCMEM Q2H PRN PRN Reason: Sore Throat Last Admin: 11/28/20 06:34 Dose: 1 spray Documented by: Admin: 11/28/20 04:24 Dose: 1 spray Documented by: Admin: 11/27/20 22:33 Dose: 1 spray Documented by: TOBI Sodium Chloride (Saline Flush) 10 ml FLUSH ASDIRECTED PRN PRN Reason: Keep Vein Open Sodium Chloride (Saline Flush) 2.5 ml FLUSH ASDIRECTED PRN PRN Reason: Keep Vein Open Sodium Chloride (Normal Saline) 10 ml IV ASDIRECTED PRN PRN Reason: IV Use - Plan Plan (Free Text/Narrative):: Patient was complaining this morning of lower abdominal cramping pain. He states that the Dilaudid helps but is short acting. He denies any flatus. He remains distended. His NG had minimal output overnight. What output there was is clear appearing. Vital signs stable. DARYL has resolved. BUN/creatinine are within normal limits. Electrolytes are normal. Urine output was adequate overnight. Pain: IV dilaudid 0.5mg q 1hr prn severe pain. Once NG is removed will start Percocet 3255 milligrams 2 tablets every 4 hours as needed for pain. Will avoid Toradol given his recent kidney issues. Will also prescribed 3 times a day Flexeril 5 mg. CV/Pulm: D/c cardiac monitoring and continuous oximetry. Encourage OOB activity and IS use. GI: NG clamped this morning. If low residuals (<500ml) will remove after 2 hours. Ice chips and sips with meds to start after that. Renal: AK I resolved. BUN/creatinine within normal limits. Electrolytes are normal. Continue normal saline at 125 mils per hour. ID: Leukocytosis is resolving. No need for antibiotics at this time. Heme: Hemoglobin is now stable. Will start heparin DVT prophylaxis today. Prophylaxis: Pantoprazole 40 mg daily until tolerating a regular diet. SCDs
[2020-11-28] MEDS: Cyclobenzaprine 5 MG Tab PO SCH ×2 (13:20→21:34)
[2020-11-28] MEDS: Acetaminophen/oxyCODONE 325-5 MG Tab PO PRN ×3 (14:26→23:14)
[2020-11-29] MEDS: Sodium Chloride 0.9% 1,000 ML IV SCH (01:11)
[2020-11-29] MEDS: Acetaminophen/oxyCODONE 325-5 MG Tab PO PRN ×3 (04:55→16:04)
[2020-11-29 05:29] LABS: BLOOD UREA NITROGEN,BUN 12 mg/dL (7.0-18.0); CARBON DIOXIDE,CO2 28.8 mmol/L (21.0-32.0); CHLORIDE,CL 105 mmol/L (98-107); GLUCOSE RANDOM 90 mg/dL (74-106); POTASSIUM,K 4.1 mmol/L (3.5-5.1); SODIUM,NA 141 mmol/L (136-148)
[2020-11-29] MEDS: Pantoprazole 40 MG Tab.CR PO SCH (06:34)
[2020-11-29] MEDS: Cyclobenzaprine 5 MG Tab PO SCH ×3 (06:34→21:01)
--- NOTE | 2020-11-29 08:48 | PCM.SURGPN ---
- General Info Date of Service: 11/29/20 Date of Surgery/Procedure: 11/27/20 POD#: 2 Functional Status: Reports: Pain Controlled, Tolerating Diet, Ambulating, Urinating. Denies: New Symptoms - Review of Systems General: Reports: No Symptoms HEENT: Reports: No Symptoms Pulmonary: Reports: No Symptoms Cardiovascular: Reports: No Symptoms Gastrointestinal: Denies: Abdominal Pain, Decreased Appetite, Diarrhea, Flatus, Nausea, Vomiting Genitourinary: Reports: No Symptoms Musculoskeletal: Reports: No Symptoms Skin: Reports: No Symptoms - Patient Data Vitals - Most Recent: Last Vital Signs Temp 36.9 C 11/29/20 04:47 Pulse 72 11/29/20 04:47 Resp 18 11/29/20 04:47 BP 115/61 11/29/20 04:47 Pulse Ox 93 L 11/29/20 04:47 Weight - Most Recent: 76.975 kg I&O - Last 24 Hours: Intake & Output 11/28/20 11/29/20 11/29/20 22:59 06:59 14:59 Intake Total 510 600 Output Total 375 400 Balance 135 200 Lab Results Last 24 Hrs: Laboratory Results - last 24 hr 11/29/20 11/29/20 Range/Units 04:53 04:53 WBC 8.63 (4.0-11.0) K/uL RBC 3.91 L (4.50-5.90) M/uL Hgb 13.0 (13.0-17.0) g/dL Hct 40.5 (38.0-50.0) % MCV 103.6 H (80.0-98.0) fL MCH 33.2 H (27.0-32.0) pg MCHC 32.1 (31.0-37.0) g/dL RDW Std Deviation 51.0 (28.0-62.0) fl RDW Coeff of Yin 14 (11.0-15.0) % Plt Count 188 (150-400) K/uL MPV 9.10 (7.40-12.00) fL Nucleated RBC % 0.0 /100WBC Nucleated RBCs # 0 K/uL Sodium 141 (136-148) mmol/L Potassium 4.1 (3.5-5.1) mmol/L Chloride 105 (98-107) mmol/L Carbon Dioxide 28.8 (21.0-32.0) mmol/L BUN 12 (7.0-18.0) mg/dL Creatinine 1.1 (0.8-1.3) mg/dL Est Cr Clr Drug Dosing 78.72 mL/min Estimated GFR (MDRD) > 60.0 ml/min Glucose 90 (74-106) mg/dL Calcium 7.9 L (8.5-10.1) mg/dL Phosphorus 2.5 L (2.6-4.7) mg/dL Magnesium 1.9 (1.8-2.4) mg/dL Med Orders - Current: Current Medications Albuterol/Ipratropium (Duoneb 3.0-0.5 Mg/3 Ml) 3 ml NEB Q4HRRT PRN PRN Reason: Wheezing Cyclobenzaprine HCl (Flexeril) 5 mg PO TID [facility] Last Admin: 11/29/20 06:34 Dose: 5 mg Documented by: Diphenhydramine HCl (Benadryl) 50 mg IVPUSH Q4H PRN PRN Reason: Itching Hydromorphone HCl (Dilaudid) 0.5 mg IVPUSH Q1H PRN PRN Reason: Pain (severe 7-10) Last Admin: 11/28/20 11:29 Dose: 0.5 mg Documented by: Sodium Chloride (Normal Saline) 1,000 mls @ 125 mls/hr IV ASDIRECTED [facility] Last Admin: 11/29/20 01:11 Dose: 125 mls/hr Documented by: Oxycodone/Acetaminophen (Percocet 325-5 Mg) 2 tab PO Q4H PRN PRN Reason: Pain (severe 7-10) Last Admin: 11/29/20 04:55 Dose: 2 tab Documented by: Pantoprazole Sodium (Protonix) 40 mg PO ACBREAKFAST [facility] Last Admin: 11/29/20 06:34 Dose: 40 mg Documented by: Phenol/Menthol (Chloraseptic Throat [place]) 1 ml MUCMEM Q2H PRN PRN Reason: Sore Throat Last Admin: 11/28/20 06:34 Dose: 1 spray Documented by: Polyethylene Glycol (Miralax) 17 gm PO DAILY [facility] Sodium Chloride (Saline Flush) 10 ml FLUSH ASDIRECTED PRN PRN Reason: Keep Vein Open Sodium Chloride (Saline Flush) 2.5 ml FLUSH ASDIRECTED PRN PRN Reason: Keep Vein Open Sodium Chloride (Normal Saline) 10 ml IV ASDIRECTED PRN PRN Reason: IV Use Discontinued Medications Albuterol (Proventil Neb Soln) 2.5 mg NEB ONETIME PRN PRN Reason: Wheezing Atropine Sulfate (Atropine 0.1 Mg/Ml) 0.5 mg IVPUSH ASDIRECTED PRN PRN Reason: Hypo-perfusion Atropine Sulfate (Atropine 0.1 Mg/Ml) 1 mg IVPUSH ASDIRECTED PRN PRN Reason: Hypo-Perfusion Bupivacaine HCl (Marcaine 0.5%) Confirm Administered Dose 120 ml .ROUTE .STK-MED ONE Stop: 11/27/20 11:52 Cefazolin Sodium (Ancef) Confirm Administered Dose 1 gm .ROUTE .STK-MED ONE Stop: 11/27/20 12:13 Dexamethasone (Dexamethasone) Confirm Administered Dose 20 mg .ROUTE .STK-MED ONE Stop: 11/27/20 11:58 Dextrose/Water (Dextrose 50% In Water) 50 ml IVPUSH ASDIRECTED PRN PRN Reason: Hypoglycemia Ephedrine Sulfate (Ephedrine Sulfate) Confirm Administered Dose 50 mg .ROUTE .STK-MED ONE Stop: 11/27/20 11:46 Epinephrine HCl (Epinephrine 1:10,000) 1 mg IVPUSH ASDIRECTED PRN PRN Reason: ACLS Guidelines Fentanyl (Sublimaze) Confirm Administered Dose 250 mcg .ROUTE .STK-MED ONE Stop: 11/27/20 11:47 Fentanyl (Sublimaze) 50 - 100 mcg IVPUSH Q5M PRN PRN Reason: Pain Last Admin: 11/27/20 16:22 Dose: 50 mcg Documented by: Hydromorphone HCl (Dilaudid) Confirm Administered Dose 2 mg .ROUTE .STK-MED ONE Stop: 11/27/20 13:55 Piperacillin Sod/Tazobactam (Sod 3.375 gm/ Sodium Chloride) 50 mls @ 100 mls/hr IV ONETIME ONE Stop: 11/27/20 12:03 Last Admin: 11/27/20 11:48 Dose: 100 mls/hr Documented by: Sodium Chloride (Normal Saline) 1,000 mls @ 999 mls/hr IV .Bolus ONE Stop: 11/27/20 12:42 Last Admin: 11/27/20 11:47 Dose: 999 mls/hr Documented by: Acetaminophen (Ofirmev) Confirm Administered Dose 100 mls @ as directed .ROUTE .STK-MED ONE Stop: 11/27/20 13:12 Pantoprazole Sodium 40 mg/ (Sodium Chloride) 10 mls @ 300 mls/hr IV DAILY [facility] Last Admin: 11/28/20 08:17 Dose: 300 mls/hr Documented by: Midazolam HCl (Versed 1 Mg/Ml) Confirm Administered Dose 2 mg .ROUTE .STK-MED ONE Stop: 11/27/20 11:56 Naloxone HCl (Narcan) 0.1 mg IVPUSH ASDIRECTED PRN PRN Reason: Respiratory Depression Octyl Cyanoacrylate (Dermabond Advance) Confirm Administered Dose 1 applic .ROUTE .STK-MED ONE Stop: 11/27/20 11:53 Ondansetron HCl (Zofran) Confirm Administered Dose 4 mg .ROUTE .STK-MED ONE Stop: 11/27/20 11:46 Propofol (Diprivan 20 Ml) Confirm Administered Dose 200 mg .ROUTE .STK-MED ONE Stop: 11/27/20 11:46 Sugammadex Sodium (Bridion) Confirm Administered Dose 200 mg .ROUTE .STK-MED ONE Stop: 11/27/20 14:25 - Exam Wound/Incisions: Healing Well, Dressing Dry and Intact General: Alert, Oriented Lungs: Normal Respiratory Effort Cardiovascular: Regular Rate GI/Abdominal Exam: Soft, Non-Tender, No Mass, Distended. No: Guarding, Rigid, Rebound Extremities: Normal Inspection, Normal Range of Motion Skin: Warm, Dry, Intact Neurological: No New Focal Deficit Psy/Mental Status: Alert, Normal Affect, Normal Mood Sepsis Event Note - Evaluation Sepsis Screening Result: No Definite Risk - Focused Exam Vital Signs: Vital Signs Temp Pulse Resp BP Pulse Ox 11/29/20 04:47 36.9 C 72 18 115/61 93 L 11/29/20 01:21 37.2 C 70 18 101/64 92 L 11/28/20 21:17 37.4 C 73 16 110/65 91 L - Problem List & Annotations (1) SBO (small bowel obstruction) SNOMED Code(s): 524623245 Code(s): K56.609 - UNSP INTESTNL OBST, UNSP TO PARTIAL VERSUS COMPLETE OBST Status: Acute Current Visit: Yes (2) DARYL (acute kidney injury) SNOMED Code(s): 96574591, 77902571 Code(s): N17.9 - ACUTE KIDNEY FAILURE, UNSPECIFIED Status: Acute Current Visit: Yes (3) Dehydration SNOMED Code(s): 44536643 Code(s): E86.0 - DEHYDRATION Status: Acute Current Visit: Yes - Problem List Review Problem List Initiated/Reviewed/Updated: Yes - My Orders Last 24 Hours: Active Orders 24 hr Category Date Time Status Transfer Patient (Change bed) [ADT] Routine ADT 11/28/20 10:30 Ordered Clear Liquid Diet [DIET] Diet 11/28/20 Dinner Active Acetaminophen/oxyCODONE [Percocet 325-5 MG] Med 11/28/20 10:23 Active 2 tab PO Q4H PRN Cyclobenzaprine [Flexeril] Med 11/28/20 14:00 Active 5 mg PO TID Pantoprazole [ProTONIX] Med 11/29/20 07:30 Active 40 mg PO ACBREAKFAST polyethylene glycoL 3350 [MiraLAX] Med 11/29/20 09:00 Active 17 gm PO DAILY NG [Nasogastric Orogastric Tube Removal] [OM.PC] Oth 11/28/20 10:26 Ordered Routine Medication Orders Albuterol/Ipratropium (Duoneb 3.0-0.5 Mg/3 Ml) 3 ml NEB Q4HRRT PRN PRN Reason: Wheezing Cyclobenzaprine HCl (Flexeril) 5 mg PO TID [facility] Last Admin: 11/29/20 06:34 Dose: 5 mg Documented by: Admin: 11/28/20 21:34 Dose: 5 mg Documented by: Admin: 11/28/20 13:20 Dose: 5 mg Documented by: REENA Diphenhydramine HCl (Benadryl) 50 mg IVPUSH Q4H PRN PRN Reason: Itching Hydromorphone HCl (Dilaudid) 0.5 mg IVPUSH Q1H PRN PRN Reason: Pain (severe 7-10) Last Admin: 11/28/20 11:29 Dose: 0.5 mg Documented by: Admin: 11/28/20 08:14 Dose: 0.5 mg Documented by: Admin: 11/28/20 06:34 Dose: 0.5 mg Documented by: Admin: 11/28/20 04:23 Dose: 0.5 mg Documented by: Admin: 11/28/20 02:54 Dose: 0.5 mg Documented by: Admin: 11/28/20 01:42 Dose: 0.5 mg Documented by: Admin: 11/28/20 00:31 Dose: 0.5 mg Documented by: Admin: 11/27/20 21:54 Dose: 0.5 mg Documented by: Admin: 11/27/20 20:36 Dose: 0.5 mg Documented by: TOBI Sodium Chloride (Normal Saline) 1,000 mls @ 125 mls/hr IV ASDIRECTED [facility] Last Admin: 11/29/20 01:11 Dose: 125 mls/hr Documented by: Infusion: 11/28/20 16:34 Dose: 125 mls/hr Documented by: Admin: 11/28/20 08:34 Dose: 125 mls/hr Documented by: Infusion: 11/28/20 08:34 Dose: 125 mls/hr Documented by: Admin: 11/28/20 01:37 Dose: 125 mls/hr Documented by: Infusion: 11/28/20 01:37 Dose: 125 mls/hr Documented by: Admin: 11/27/20 17:40 Dose: 125 mls/hr Documented by: KHUSHBOO Oxycodone/Acetaminophen (Percocet 325-5 Mg) 2 tab PO Q4H PRN PRN Reason: Pain (severe 7-10) Last Admin: 11/29/20 04:55 Dose: 2 tab Documented by: Admin: 11/28/20 23:14 Dose: 2 tab Documented by: Admin: 11/28/20 18:55 Dose: 1 tab Documented by: Admin: 11/28/20 14:26 Dose: 2 tab Documented by: REENA Pantoprazole Sodium (Protonix) 40 mg PO ACBREAKFAST [facility] Last Admin: 11/29/20 06:34 Dose: 40 mg Documented by: KINJAL Phenol/Menthol (Chloraseptic Throat [place]) 1 ml MUCMEM Q2H PRN PRN Reason: Sore Throat Last Admin: 11/28/20 06:34 Dose: 1 spray Documented by: Admin: 11/28/20 04:24 Dose: 1 spray Documented by: Admin: 11/27/20 22:33 Dose: 1 spray Documented by: TOBI Polyethylene Glycol (Miralax) 17 gm PO DAILY [facility] Sodium Chloride (Saline Flush) 10 ml FLUSH ASDIRECTED PRN PRN Reason: Keep Vein Open Sodium Chloride (Saline Flush) 2.5 ml FLUSH ASDIRECTED PRN PRN Reason: Keep Vein Open Sodium Chloride (Normal Saline) 10 ml IV ASDIRECTED PRN PRN Reason: IV Use - Plan Plan (Free Text/Narrative):: Patient is anxious to advance his diet to a regular. He is still distended and has not passed gas. He states that he can feel more movement in his abdomen like gas moving around. He was burping during our visit. He is tolerating clears without difficulty and has an appetite. I explained to him that he needs to give his intestines time to regain function. They are improving but if he tries to eat too soon, he could end up having nausea or vomiting. He stated that when he had surgery for his colon resection he was discharged right away and allowed to eat. I explained that this is a different disease process and requires different management. If he starts passing gas I will advance his diet to soft then regular if tolerated. Will stop IVF today and start miralax and dulcolax.
[2020-11-29] MEDS: Polyethylene Glycol 3350 Powder 17 GM Packet PO SCH (09:05)
[2020-11-29] MEDS: Bisacodyl 5 MG Tab PO SCH ×2 (10:09→21:01)
[2020-11-29] MEDS: Multivitamin Tab PO SCH (21:01)
[2020-11-30] MEDS: Acetaminophen/oxyCODONE 325-5 MG Tab PO PRN ×4 (01:43→23:05)
[2020-11-30] MEDS: Cyclobenzaprine 5 MG Tab PO SCH ×3 (06:31→21:37)
[2020-11-30] MEDS: Pantoprazole 40 MG Tab.CR PO SCH (06:31)
--- NOTE | 2020-11-30 08:03 | PCM.DCSUM1 ---
Discharge Summary - Hospital Course Free Text/Narrative:: Patient is a 60 year old male who presented to the ED with dehydration, daryl, and a high grade small bowel obstruction. His CT showed an obstruction near an anastomotic line in the sigmoid colon concerning for adhesions. He was taken to the OR for an ex lap. He was found to have adhesive bands in the mid and distal jejunum. These were taken down and the small bowel appeared well perfused and intact. He was very dehydrated on arrival and his labs showed DARYL with a rising BUN, Cr and potassium. He was given multiple liters of fluid on HD #1. By the evening his labs were improving with no need for further intervention. The next day (POD#1) he had minimal NG output and good UOP. Giles and NG were discontinued. His diet was advanced to clears without difficulty. The next day he was still distended but hungry. His pain was well controlled with po medicati ons (Percocet and Flexeril). The patient was advanced to a soft diet without difficulty. He started passing gas. He remained distended. His dressings were removed. His incision appeared to be healing well. - Discharge Data Discharge Disposition: Home, Self-Care 01 Condition: Stable - Referral to Home Health Primary Care Physician: PCP None - Discharge Diagnosis/Problem(s) (1) SBO (small bowel obstruction) SNOMED Code(s): 462289317 ICD Code: K56.609 - UNSP INTESTNL OBST, UNSP TO PARTIAL VERSUS COMPLETE OBST Status: Acute Current Visit: Yes (2) DARYL (acute kidney injury) SNOMED Code(s): 95600650, 97542496 ICD Code: N17.9 - ACUTE KIDNEY FAILURE, UNSPECIFIED Status: Acute Current Visit: Yes (3) Dehydration SNOMED Code(s): 84724891 ICD Code: E86.0 - DEHYDRATION Status: Acute Current Visit: Yes - Patient Instructions Diet: Regular Diet as Tolerated Activity: No Lifting Over 20 Pounds (for six weeks ), Rest and Relax Today Driving: Do Not Drive (for one week after surgery or while taking narcotic medication) Showering/Bathing: May Shower, No Tub Bathing/Swimming (for 2 weeks ) Wound/Incision Care: Keep Operative Site/Wound Site Clean and Dry Notify Provider of: Fever, Increased Pain, Swelling and Redness, Drainage, Nausea and/or Vomiting - Discharge Plan *PRESCRIPTION DRUG MONITORING PROGRAM REVIEWED*: Yes *COPY OF PRESCRIPTION DRUG MONITORING REPORT IN PATIENT SALMA: Yes Prescriptions/Med Rec: bisacodyL [Dulcolax] 5 mg PO BID #10 tablet polyethylene glycoL 3350 [MiraLAX] 17 gm PO DAILY #5 packet Home Medications: Home Meds Albuterol Sulfate [Albuterol Sulfate Hfa] 1 - 2 puff INH ASDIRECTED PRN 11/02/20 [History] Budesonide/Formoterol Fumarate [Symbicort 160-4.5 Mcg Inhaler] 1 puff INH ASDIRECTED 11/27/20 [History] bisacodyL [Dulcolax] 5 mg PO BID #10 tablet 11/30/20 [Rx] polyethylene glycoL 3350 [MiraLAX] 17 gm PO DAILY #5 packet 11/30/20 [Rx] Patient Handouts: Bisacodyl tablets and capsules, Bowel Obstruction, [id number], Dehydration, Adult, [id number], Polyethylene Glycol powder Forms: ED Department Discharge Referrals: Ceci Lombardo MD [Physician] - 12/05/20 9:00 am Jose Cruz Her NP [Ordering Only Provider] - 12/17/20 12:30 pm - Patient Data Vitals - Most Recent: Last Vital Signs Temp 36.8 C 11/30/20 07:52 Pulse 62 11/30/20 07:52 Resp 16 11/30/20 07:52 BP 129/70 11/30/20 07:52 Pulse Ox 95 11/30/20 07:52 Weight - Most Recent: 76.975 kg I&O - Last 24 hours: Intake & Output 11/29/20 11/30/20 11/30/20 22:59 06:59 14:59 Intake Total 800 760 Output Total 550 580 Balance 250 180 Med Orders - Current: Current Medications Albuterol/Ipratropium (Duoneb 3.0-0.5 Mg/3 Ml) 3 ml NEB Q4HRRT PRN PRN Reason: Wheezing Bisacodyl (Dulcolax) 5 mg PO BID [facility] Last Admin: 11/29/20 21:01 Dose: 5 mg Documented by: Cyclobenzaprine HCl (Flexeril) 5 mg PO TID [facility] Last Admin: 11/30/20 06:31 Dose: 5 mg Documented by: Diphenhydramine HCl (Benadryl) 50 mg IVPUSH Q4H PRN PRN Reason: Itching Hydromorphone HCl (Dilaudid) 0.5 mg IVPUSH Q1H PRN PRN Reason: Pain (severe 7-10) Last Admin: 11/28/20 11:29 Dose: 0.5 mg Documented by: Multivitamins/Minerals/Vitamin C (Tab-A-Kavita) 1 tab PO BEDTIME [facility] Last Admin: 11/29/20 21:01 Dose: 1 tab Documented by: Oxycodone/Acetaminophen (Percocet 325-5 Mg) 2 tab PO Q4H PRN PRN Reason: Pain (severe 7-10) Last Admin: 11/30/20 01:43 Dose: 2 tab Documented by: Pantoprazole Sodium (Protonix) 40 mg PO ACBREAKFAST [facility] Last Admin: 11/30/20 06:31 Dose: 40 mg Documented by: Phenol/Menthol (Chloraseptic Throat [place]) 1 ml MUCMEM Q2H PRN PRN Reason: Sore Throat Last Admin: 11/28/20 06:34 Dose: 1 spray Documented by: Polyethylene Glycol (Miralax) 17 gm PO DAILY [facility] Last Admin: 11/29/20 09:05 Dose: 17 gm Documented by: Sodium Chloride (Saline Flush) 10 ml FLUSH ASDIRECTED PRN PRN Reason: Keep Vein Open Sodium Chloride (Saline Flush) 2.5 ml FLUSH ASDIRECTED PRN PRN Reason: Keep Vein Open Sodium Chloride (Normal Saline) 10 ml IV ASDIRECTED PRN PRN Reason: IV Use Discontinued Medications Albuterol (Proventil Neb Soln) 2.5 mg NEB ONETIME PRN PRN Reason: Wheezing Atropine Sulfate (Atropine 0.1 Mg/Ml) 0.5 mg IVPUSH ASDIRECTED PRN PRN Reason: Hypo-perfusion Atropine Sulfate (Atropine 0.1 Mg/Ml) 1 mg IVPUSH ASDIRECTED PRN PRN Reason: Hypo-Perfusion Bupivacaine HCl (Marcaine 0.5%) Confirm Administered Dose 120 ml .ROUTE .STK-MED ONE Stop: 11/27/20 11:52 Cefazolin Sodium (Ancef) Confirm Administered Dose 1 gm .ROUTE .STK-MED ONE Stop: 11/27/20 12:13 Dexamethasone (Dexamethasone) Confirm Administered Dose 20 mg .ROUTE .STK-MED ONE Stop: 11/27/20 11:58 Dextrose/Water (Dextrose 50% In Water) 50 ml IVPUSH ASDIRECTED PRN PRN Reason: Hypoglycemia Ephedrine Sulfate (Ephedrine Sulfate) Confirm Administered Dose 50 mg .ROUTE .STK-MED ONE Stop: 11/27/20 11:46 Epinephrine HCl (Epinephrine 1:10,000) 1 mg IVPUSH ASDIRECTED PRN PRN Reason: ACLS Guidelines Fentanyl (Sublimaze) Confirm Administered Dose 250 mcg .ROUTE .STK-MED ONE Stop: 11/27/20 11:47 Fentanyl (Sublimaze) 50 - 100 mcg IVPUSH Q5M PRN PRN Reason: Pain Last Admin: 11/27/20 16:22 Dose: 50 mcg Documented by: Hydromorphone HCl (Dilaudid) Confirm Administered Dose 2 mg .ROUTE .STK-MED ONE Stop: 11/27/20 13:55 Piperacillin Sod/Tazobactam (Sod 3.375 gm/ Sodium Chloride) 50 mls @ 100 mls/hr IV ONETIME ONE Stop: 11/27/20 12:03 Last Admin: 11/27/20 11:48 Dose: 100 mls/hr Documented by: Sodium Chloride (Normal Saline) 1,000 mls @ 999 mls/hr IV .Bolus ONE Stop: 11/27/20 12:42 Last Admin: 11/27/20 11:47 Dose: 999 mls/hr Documented by: Acetaminophen (Ofirmev) Confirm Administered Dose 100 mls @ as directed .ROUTE .STK-MED ONE Stop: 11/27/20 13:12 Sodium Chloride (Normal Saline) 1,000 mls @ 125 mls/hr IV ASDIRECTED [facility] Last Admin: 11/29/20 01:11 Dose: 125 mls/hr Documented by: Pantoprazole Sodium 40 mg/ (Sodium Chloride) 10 mls @ 300 mls/hr IV DAILY [facility] Last Admin: 11/28/20 08:17 Dose: 300 mls/hr Documented by: Midazolam HCl (Versed 1 Mg/Ml) Confirm Administered Dose 2 mg .ROUTE .STK-MED ONE Stop: 11/27/20 11:56 Naloxone HCl (Narcan) 0.1 mg IVPUSH ASDIRECTED PRN PRN Reason: Respiratory Depression Octyl Cyanoacrylate (Dermabond Advance) Confirm Administered Dose 1 applic .ROUTE .STK-MED ONE Stop: 11/27/20 11:53 Ondansetron HCl (Zofran) Confirm Administered Dose 4 mg .ROUTE .STK-MED ONE Stop: 11/27/20 11:46 Propofol (Diprivan 20 Ml) Confirm Administered Dose 200 mg .ROUTE .STK-MED ONE Stop: 11/27/20 11:46 Sugammadex Sodium (Bridion) Confirm Administered Dose 200 mg .ROUTE .STK-MED ONE Stop: 11/27/20 14:25
[2020-11-30] MEDS: Polyethylene Glycol 3350 Powder 17 GM Packet PO SCH (09:14)
[2020-11-30] MEDS: Bisacodyl 5 MG Tab PO SCH ×2 (09:14→21:37)
--- NOTE | 2020-11-30 16:14 | PCM.SURGPN ---
- General Info Date of Service: 11/26/20 Date of Surgery/Procedure: 11/30/20 POD#: 4 Functional Status: Reports: Pain Controlled, Tolerating Diet, Ambulating, Urinating. Denies: New Symptoms - Review of Systems General: Reports: No Symptoms HEENT: Reports: No Symptoms Pulmonary: Reports: No Symptoms Cardiovascular: Reports: No Symptoms Gastrointestinal: Reports: Constipation, Flatus. Denies: Abdominal Pain, Decreased Appetite, Diarrhea Genitourinary: Reports: No Symptoms Musculoskeletal: Reports: No Symptoms Skin: Reports: No Symptoms Neurological: Reports: No Symptoms - Patient Data Vitals - Most Recent: Last Vital Signs Temp 36.4 C 11/30/20 15:47 Pulse 64 11/30/20 15:47 Resp 16 11/30/20 15:47 BP 108/66 11/30/20 15:47 Pulse Ox 92 L 11/30/20 15:47 Weight - Most Recent: 76.975 kg I&O - Last 24 Hours: Intake & Output 11/30/20 11/30/20 11/30/20 06:59 14:59 22:59 Intake Total 760 Output Total 580 Balance 180 Med Orders - Current: Current Medications Albuterol/Ipratropium (Duoneb 3.0-0.5 Mg/3 Ml) 3 ml NEB Q4HRRT PRN PRN Reason: Wheezing Bisacodyl (Dulcolax) 5 mg PO BID [facility] Last Admin: 11/30/20 09:14 Dose: 5 mg Documented by: Cyclobenzaprine HCl (Flexeril) 5 mg PO TID [facility] Last Admin: 11/30/20 13:27 Dose: 5 mg Documented by: Diphenhydramine HCl (Benadryl) 50 mg IVPUSH Q4H PRN PRN Reason: Itching Hydromorphone HCl (Dilaudid) 0.5 mg IVPUSH Q1H PRN PRN Reason: Pain (severe 7-10) Last Admin: 11/28/20 11:29 Dose: 0.5 mg Documented by: Multivitamins/Minerals/Vitamin C (Tab-A-Akvita) 1 tab PO BEDTIME [facility] Last Admin: 11/29/20 21:01 Dose: 1 tab Documented by: Oxycodone/Acetaminophen (Percocet 325-5 Mg) 2 tab PO Q4H PRN PRN Reason: Pain (severe 7-10) Last Admin: 11/30/20 01:43 Dose: 2 tab Documented by: Oxycodone/Acetaminophen (Percocet 325-5 Mg) 1 tab PO Q4H PRN PRN Reason: MILD/MODERATE PAIN Last Admin: 11/30/20 09:56 Dose: 1 tab Documented by: Pantoprazole Sodium (Protonix) 40 mg PO ACBREAKFAST [facility] Last Admin: 11/30/20 06:31 Dose: 40 mg Documented by: Phenol/Menthol (Chloraseptic Throat [place]) 1 ml MUCMEM Q2H PRN PRN Reason: Sore Throat Last Admin: 11/28/20 06:34 Dose: 1 spray Documented by: Polyethylene Glycol (Miralax) 17 gm PO DAILY [facility] Last Admin: 11/30/20 09:14 Dose: 17 gm Documented by: Sodium Chloride (Saline Flush) 10 ml FLUSH ASDIRECTED PRN PRN Reason: Keep Vein Open Sodium Chloride (Saline Flush) 2.5 ml FLUSH ASDIRECTED PRN PRN Reason: Keep Vein Open Sodium Chloride (Normal Saline) 10 ml IV ASDIRECTED PRN PRN Reason: IV Use Discontinued Medications Albuterol (Proventil Neb Soln) 2.5 mg NEB ONETIME PRN PRN Reason: Wheezing Atropine Sulfate (Atropine 0.1 Mg/Ml) 0.5 mg IVPUSH ASDIRECTED PRN PRN Reason: Hypo-perfusion Atropine Sulfate (Atropine 0.1 Mg/Ml) 1 mg IVPUSH ASDIRECTED PRN PRN Reason: Hypo-Perfusion Bupivacaine HCl (Marcaine 0.5%) Confirm Administered Dose 120 ml .ROUTE .STK-MED ONE Stop: 11/27/20 11:52 Cefazolin Sodium (Ancef) Confirm Administered Dose 1 gm .ROUTE .STK-MED ONE Stop: 11/27/20 12:13 Dexamethasone (Dexamethasone) Confirm Administered Dose 20 mg .ROUTE .STK-MED ONE Stop: 11/27/20 11:58 Dextrose/Water (Dextrose 50% In Water) 50 ml IVPUSH ASDIRECTED PRN PRN Reason: Hypoglycemia Ephedrine Sulfate (Ephedrine Sulfate) Confirm Administered Dose 50 mg .ROUTE .STK-MED ONE Stop: 11/27/20 11:46 Epinephrine HCl (Epinephrine 1:10,000) 1 mg IVPUSH ASDIRECTED PRN PRN Reason: ACLS Guidelines Fentanyl (Sublimaze) Confirm Administered Dose 250 mcg .ROUTE .STK-MED ONE Stop: 11/27/20 11:47 Fentanyl (Sublimaze) 50 - 100 mcg IVPUSH Q5M PRN PRN Reason: Pain Last Admin: 11/27/20 16:22 Dose: 50 mcg Documented by: Hydromorphone HCl (Dilaudid) Confirm Administered Dose 2 mg .ROUTE .STK-MED ONE Stop: 11/27/20 13:55 Piperacillin Sod/Tazobactam (Sod 3.375 gm/ Sodium Chloride) 50 mls @ 100 mls/hr IV ONETIME ONE Stop: 11/27/20 12:03 Last Admin: 11/27/20 11:48 Dose: 100 mls/hr Documented by: Sodium Chloride (Normal Saline) 1,000 mls @ 999 mls/hr IV .Bolus ONE Stop: 11/27/20 12:42 Last Admin: 11/27/20 11:47 Dose: 999 mls/hr Documented by: Acetaminophen (Ofirmev) Confirm Administered Dose 100 mls @ as directed .ROUTE .STK-MED ONE Stop: 11/27/20 13:12 Sodium Chloride (Normal Saline) 1,000 mls @ 125 mls/hr IV ASDIRECTED [facility] Last Admin: 11/29/20 01:11 Dose: 125 mls/hr Documented by: Pantoprazole Sodium 40 mg/ (Sodium Chloride) 10 mls @ 300 mls/hr IV DAILY [facility] Last Admin: 11/28/20 08:17 Dose: 300 mls/hr Documented by: Midazolam HCl (Versed 1 Mg/Ml) Confirm Administered Dose 2 mg .ROUTE .STK-MED ONE Stop: 11/27/20 11:56 Naloxone HCl (Narcan) 0.1 mg IVPUSH ASDIRECTED PRN PRN Reason: Respiratory Depression Octyl Cyanoacrylate (Dermabond Advance) Confirm Administered Dose 1 applic .ROUTE .STK-MED ONE Stop: 11/27/20 11:53 Ondansetron HCl (Zofran) Confirm Administered Dose 4 mg .ROUTE .STK-MED ONE Stop: 11/27/20 11:46 Propofol (Diprivan 20 Ml) Confirm Administered Dose 200 mg .ROUTE .STK-MED ONE Stop: 11/27/20 11:46 Sugammadex Sodium ([place]rid[place]) Confirm Administered Dose 200 mg .ROUTE .STK-MED ONE Stop: 11/27/20 14:25 - Exam Wound/Incisions: Healing Well, Other (dressing removed. Small blister on right side of dressing edge and along the umbilicus ) General: Alert, Oriented HEENT: Pupils Equal, Pupils Reactive Lungs: Normal Respiratory Effort Cardiovascular: Regular Rate GI/Abdominal Exam: Soft, Non-Tender, Distended (improved but still distended ) Extremities: Normal Inspection Skin: Warm, Dry, Intact Sepsis Event Note - Evaluation Sepsis Screening Result: No Definite Risk - Focused Exam Vital Signs: Vital Signs Temp Pulse Resp BP BP Pulse Ox 11/30/20 15:47 36.4 C 64 16 108/66 92 L 11/30/20 12:08 36.9 C 65 15 111/61 93 L 11/30/20 07:52 36.8 C 62 16 129/70 95 - Problem List & Annotations (1) SBO (small bowel obstruction) SNOMED Code(s): 189799392 Code(s): K56.609 - UNSP INTESTNL OBST, UNSP TO PARTIAL VERSUS COMPLETE OBST Status: Acute Current Visit: Yes (2) DARYL (acute kidney injury) SNOMED Code(s): 84889564, 79949160 Code(s): N17.9 - ACUTE KIDNEY FAILURE, UNSPECIFIED Status: Acute Current Visit: Yes (3) Dehydration SNOMED Code(s): 02227979 Code(s): E86.0 - DEHYDRATION Status: Acute Current Visit: Yes - Problem List Review Problem List Initiated/Reviewed/Updated: Yes - My Orders Last 24 Hours: Active Orders 24 hr Category Date Time Status Regular Diet [DIET] Diet 11/30/20 Breakfast Active Acetaminophen/oxyCODONE [Percocet 325-5 MG] Med 11/30/20 09:43 Active 1 tab PO Q4H PRN Multivitamins [Tab-A-Kavita] Med 11/29/20 21:00 Active 1 tab PO BEDTIME Medication Orders Albuterol/Ipratropium (Duoneb 3.0-0.5 Mg/3 Ml) 3 ml NEB Q4HRRT PRN PRN Reason: Wheezing Bisacodyl (Dulcolax) 5 mg PO BID [facility] Last Admin: 11/30/20 09:14 Dose: 5 mg Documented by: Admin: 11/29/20 21:01 Dose: 5 mg Documented by: Admin: 11/29/20 10:09 Dose: 5 mg Documented by: REENA Cyclobenzaprine HCl (Flexeril) 5 mg PO TID [facility] Last Admin: 11/30/20 13:27 Dose: 5 mg Documented by: Admin: 11/30/20 06:31 Dose: 5 mg Documented by: Admin: 11/29/20 21:01 Dose: 5 mg Documented by: Admin: 11/29/20 14:41 Dose: 5 mg Documented by: Admin: 11/29/20 06:34 Dose: 5 mg Documented by: Admin: 11/28/20 21:34 Dose: 5 mg Documented by: Admin: 11/28/20 13:20 Dose: 5 mg Documented by: REENA Diphenhydramine HCl (Benadryl) 50 mg IVPUSH Q4H PRN PRN Reason: Itching Hydromorphone HCl (Dilaudid) 0.5 mg IVPUSH Q1H PRN PRN Reason: Pain (severe 7-10) Last Admin: 11/28/20 11:29 Dose: 0.5 mg Documented by: Admin: 11/28/20 08:14 Dose: 0.5 mg Documented by: Admin: 11/28/20 06:34 Dose: 0.5 mg Documented by: Admin: 11/28/20 04:23 Dose: 0.5 mg Documented by: Admin: 11/28/20 02:54 Dose: 0.5 mg Documented by: Admin: 11/28/20 01:42 Dose: 0.5 mg Documented by: Admin: 11/28/20 00:31 Dose: 0.5 mg Documented by: Admin: 11/27/20 21:54 Dose: 0.5 mg Documented by: Admin: 11/27/20 20:36 Dose: 0.5 mg Documented by: TOBI Multivitamins/Minerals/Vitamin C (Tab-A-Kavita) 1 tab PO BEDTIME [facility] Last Admin: 11/29/20 21:01 Dose: 1 tab Documented by: EMMANUEL Oxycodone/Acetaminophen (Percocet 325-5 Mg) 2 tab PO Q4H PRN PRN Reason: Pain (severe 7-10) Last Admin: 11/30/20 01:43 Dose: 2 tab Documented by: Admin: 11/29/20 16:04 Dose: 1 tab Documented by: Admin: 11/29/20 10:09 Dose: 2 tab Documented by: Admin: 11/29/20 04:55 Dose: 2 tab Documented by: Admin: 11/28/20 23:14 Dose: 2 tab Documented by: Admin: 11/28/20 18:55 Dose: 1 tab Documented by: Admin: 11/28/20 14:26 Dose: 2 tab Documented by: REENA Oxycodone/Acetaminophen (Percocet 325-5 Mg) 1 tab PO Q4H PRN PRN Reason: MILD/MODERATE PAIN Last Admin: 11/30/20 09:56 Dose: 1 tab Documented by: SAMUEL Pantoprazole Sodium (Protonix) 40 mg PO ACBREAKFAST [facility] Last Admin: 11/30/20 06:31 Dose: 40 mg Documented by: Admin: 11/29/20 06:34 Dose: 40 mg Documented by: KINJAL Phenol/Menthol (Chloraseptic Throat [place]) 1 ml MUCMEM Q2H PRN PRN Reason: Sore Throat Last Admin: 11/28/20 06:34 Dose: 1 spray Documented by: Admin: 11/28/20 04:24 Dose: 1 spray Documented by: Admin: 11/27/20 22:33 Dose: 1 spray Documented by: TOBI Polyethylene Glycol (Miralax) 17 gm PO DAILY [facility] Last Admin: 11/30/20 09:14 Dose: 17 gm Documented by: Admin: 11/29/20 09:05 Dose: 17 gm Documented by: REENA Sodium Chloride (Saline Flush) 10 ml FLUSH ASDIRECTED PRN PRN Reason: Keep Vein Open Sodium Chloride (Saline Flush) 2.5 ml FLUSH ASDIRECTED PRN PRN Reason: Keep Vein Open Sodium Chloride (Normal Saline) 10 ml IV ASDIRECTED PRN PRN Reason: IV Use - Plan Plan (Free Text/Narrative):: Patient is tolerating a regular diet, but still has not had a BM and is slightly distended. Patient is walking and eating small frequent meals. No nausea or vomiting. Will watch for one more day. Ok to d/c IVF and keep regular diet. Ok to shower.
[2020-11-30] MEDS: Multivitamin Tab PO SCH (21:37)
[2020-12-01] MEDS: Acetaminophen/oxyCODONE 325-5 MG Tab PO PRN (03:49)
[2020-12-01] MEDS: Pantoprazole 40 MG Tab.CR PO SCH (06:37)
[2020-12-01] MEDS: Cyclobenzaprine 5 MG Tab PO SCH (06:37)
[2020-12-01] MEDS: Bisacodyl 5 MG Tab PO SCH (08:27)
[2020-12-01] MEDS: Polyethylene Glycol 3350 Powder 17 GM Packet PO SCH (08:28)
--- NOTE | 2020-12-01 17:09 | DISCH ---
DATE OF ADMISSION: 11/27/2020 DATE OF DISCHARGE: 11/30/2020 PRIMARY CARE PHYSICIAN: None PCP PRIMARY DISCHARGE DIAGNOSES: 1. Small bowel obstruction. 2. Dehydration. 3. Acute kidney injury. SECONDARY DIAGNOSES: 1. History of colon cancer. 2. Chronic obstructive pulmonary disease. PROCEDURE: The patient underwent open exploratory laparotomy with lysis of adhesion on 11/27/2020. DISCHARGE MEDICATIONS: 1. Symbicort 160/4.5 inhaler 1 puff as directed. 2. Albuterol 1 to 2 puffs p.r.n. 3. Flexeril 5 mg t.i.d. p.r.n. muscle spasms. 4. Percocet 5/325, 1 to 2 tablets q.4 hours p.r.n. pain. REASON FOR ADMISSION: The patient is a pleasant 60-year-old gentleman who presented at outside facility with nausea, vomiting, abdominal pain, distention. He was found to have a high-grade small bowel obstruction. He was transferred to [facility] for definitive care with Dr. Lombardo. HOSPITAL COURSE: After the patient was admitted, he was hydrated and started on antibiotics and prepared for the OR. He went to the OR and underwent an open exploratory laparotomy with lysis of adhesion. He was found to have a couple of bands in his lower abdomen which were lysed. The patient tolerated the procedure well. He was brought back to the recovery room in stable condition. On the floor, he convalesced well. His white cell count, BUN, creatinine returned back to normal range with hydration. The patient was started on diet that was advanced as tolerated. At time of discharge, the patient was feeling good. He had been ambulating. He has urinated. He was passing a lot of flatus and was tolerating a diet. His pain was controlled with oral pain medication. The patient felt ready to go home. DISCHARGE PHYSICAL EXAMINATION: GENERAL: The patient is lying comfortably in his hospital bed. He is alert and oriented. No acute distress. VITAL SIGNS: Temperature is 97.9, pulse is 57, blood pressure is 114/67, satting 95% on room air. ABDOMEN: Soft. Some very minimal bloating. Incision is healing well with tee in place. It is clean, dry, and intact. No signs of infection. Some incisional tenderness as expected. DISCHARGE INSTRUCTIONS: The patient will go home on his regular diet as tolerated. He should do no heavy lifting over 20 pounds for the next 6 weeks and avoid strenuous activities. He should not drive for 1 week after surgery or while taking his pain medicines. I did go over that patient may shower, but no standing water such as bathtubs or swimming. He should keep his incision site clean, dry, and intact. He should come back right away if he notices any swelling, erythema, drainage, or increased pain around the incision site or if he has any nausea or vomiting, or if he has any questions whatsoever. Otherwise, he should follow up with Dr. Lombardo for staple removal. All the patient's questions were answered. KARINA MARIE /[id number] MTDD
== END 2020-12-01 12:00 | disposition home or self-care (01) | DRG 336 ==
LOC: MW.ED 09:30 → MW.SDS 11:34 → MW.MS 16:50
PROVIDERS: ADMIT Surgery; ATTEND Surgery
PROC: 0DN80ZZ Release Small Intestine, Open Approach (ICD-10-PCS; principal; 2020-11-27)
DX: K56.609 Unspecified intestinal obstruction, unspecified as to partial versus complete obstruction (principal); K56.50 Intestinal adhesions [bands], unspecified as to partial versus complete obstruction; N17.9 Acute kidney failure, unspecified; H54.7 Unspecified visual loss; M19.90 Unspecified osteoarthritis, unspecified site; Z20.822 Contact with and (suspected) exposure to COVID-19; F17.200 Nicotine dependence, unspecified, uncomplicated; E86.0 Dehydration; Z79.51 Long term (current) use of inhaled steroids; Z85.038 Personal history of other malignant neoplasm of large intestine; J44.9 Chronic obstructive pulmonary disease, unspecified; Z79.899 Other long term (current) drug therapy; Z90.89 Acquired absence of other organs; Z90.49 Acquired absence of other specified parts of digestive tract; F17.210 Nicotine dependence, cigarettes, uncomplicated
CPT/HCPCS: 00840; 36415; 80048; 80053; 83036; 83605; 83735; 84100; 85025; 85027; 93005; 93010; 96365; 99282; 99285-25; A9270-GY; C9113; J0131; J0330; J0690; J1100; J1170; J2250; J2405; J2543; J2704; J3010; J3490; J7030; J7050; U0002

== ENCOUNTER → 2021-11-29 | Day surgery (SDC) | payer OTHER ==
[~2021-11-29] MED LIST changes: -Lidocaine 2% 5 ML SDV ONE; -Propofol 200 MG/20 ML SDV ONE; -fentaNYL 100 MCG/2 ML SDV ONE; +propofoL 0 ML ONE
== END ==
LOC: MW.SDS 08:18
PROVIDERS: ATTEND Surgery
DX: K57.30 Diverticulosis of large intestine without perforation or abscess without bleeding (principal); Z53.09 Procedure and treatment not carried out because of other contraindication; U07.1 COVID-19; Z85.038 Personal history of other malignant neoplasm of large intestine
CPT/HCPCS: J2704; U0002